=== PATIENT | female | born 1960 | race Caucasian/White ===

== ENCOUNTER → 2016-12-23 | Outpatient (CLI) | payer OTHER ==
--- NOTE | 2016-12-23 09:57 | DX ---
Right hand, 3 views, 916 a.m. Right Hand, 3 Views, at 9:16 a.m. Clinical History: 56-year-old female with metacarpal pain after twisting her right hand in her dog's leash yesterday. ICD 10 Diagnostic Code: M79.641. Comparison Study: None. Findings: There is no acute fracture or dislocation. There is a punctate well-corticated ossific dens ity distal to the ulnar styloid. The radiocarpal and intercarpal alignments are maintained, and the m etacarpals are intact. Impression: There is no acute osseous abnormality identified.
== END ==
LOC: BMCIMAGING 09:19
PROVIDERS: ATTEND Family Medicine
DX: M79.641 Pain in right hand (principal)

== ENCOUNTER → 2017-02-01 | Outpatient (CLI) | payer OTHER | LOC: BMCIMAGING 14:40 | DX: Z12.31 Encounter for screening mammogram for malignant neoplasm of breast (principal) | CPT/HCPCS: G0202 ==

== ENCOUNTER → 2017-03-29 | Outpatient (CLI) | payer OTHER | LOC: BMCIMAGING 11:40 | PROVIDERS: ATTEND Podiatrist Foot & Ankle Surgery | DX: M79.672 Pain in left foot (principal); M77.32 Calcaneal spur, left foot ==

== ENCOUNTER → 2017-05-24 | Outpatient (CLI) | payer OTHER | LOC: BMCIMAGING 08:34 | PROVIDERS: ATTEND Family Medicine | DX: M25.522 Pain in left elbow (principal) ==

== ENCOUNTER → 2017-07-25 | Outpatient (CLI) | payer OTHER | LOC: FIMAGING 16:41 | PROVIDERS: ATTEND Internal Medicine | DX: R22.42 Localized swelling, mass and lump, left lower limb (principal) ==

== ENCOUNTER → 2017-08-10 | Outpatient (CLI) | payer OTHER ==
[~2017-08-10] MED LIST: IOPAMIDOL (ISOVUE 370) 100 ML BTL IV ONE; LIDOCAINE 1% 300 MG/30 ML SDV ONE
== END ==
LOC: FIMAGING 10:07
PROVIDERS: ATTEND Physician Assistant
PROC: 3E0U3KZ Introduction of Other Diagnostic Substance into Joints, Percutaneous Approach (ICD-10-PCS; principal; 2017-08-10)
DX: Z47.1 Aftercare following joint replacement surgery (principal); Z96.622 Presence of left artificial elbow joint
CPT/HCPCS: Q9967

== ENCOUNTER 2017-09-02 15:52 | Emergency (ER) | payer OTHER ==
[2017-09-02 15:58] VITALS: TEMP 98.2
[2017-09-02] MEDS ORDERED: NS 1,000 ML IV ONE (16:21)
[2017-09-02] MEDS ORDERED: HYDROmorphONE/DILAUDID 1 MG/ML INJ IVP ONE (16:22)
--- NOTE | 2017-09-02 16:25 | EDPHY ---
H & P Stated Complaint: chills, red/painfull surgical wound Time Seen by Provider: 09/02/17 16:12 HPI/ROS: CHIEF COMPLAINT: Wound infection HISTORY OF PRESENT ILLNESS: The patient is a 57-year-old morbidly obese female who comes to the emergency department complaining of increased low back pain as well as chills and concerned that her wound is warm. She is 2.5 weeks out from a T10 through S1 fusion by Dr. Klein at [facility]. She states that she has been nauseous for the last day and has also not been taking her Dilaudid. She states that it is more painful to lay on or move. The wound itself is well appearing not erythematous and not draining. She called her home health nurse who recommended she come here for lab work. REVIEW OF SYSTEMS: Constitutional: denies: chills, fever, recent illness, recent injury EENTM: denies: blurred vision, double vision, nose congestion Respiratory: denies: cough, shortness of breath Cardiac: denies: chest pain, irregular heart rate, lightheadedness, palpitations Gastrointestinal/Abdominal: denies: abdominal pain, diarrhea, nausea, vomiting, blood streaked stools Genitourinary: denies: dysuria, frequency, hematuria, pain Musculoskeletal: See HPI Skin: See HPI Neurological: denies: headache, numbness, paresthesia, tingling, dizziness, weakness Hematologic/Lymphatic: denies: blood clots, easy bleeding, easy bruising Immunologic/allergic: denies: HIV/AIDS, transplant EXAM: GENERAL: Well-appearing, well-nourished and in no acute distress. HEAD: Atraumatic, normocephalic. EYES: Pupils equal round and reactive to light, extraocular movements intact, sclera anicteric, conjunctiva are normal. ENT: TMs normal, nares patent, oropharynx clear without exudates. Moist mucous membranes. NECK: Normal range of motion, supple without lymphadenopathy or JVD. LUNGS: Breath sounds clear to auscultation bilaterally and equal. No wheezes rales or rhonchi. HEART: Regular rate and rhythm without murmurs, rubs or gallops. ABDOMEN: Soft, nontender, normoactive bowel sounds. No guarding, no rebound. No masses appreciated. BACK: No CVA tenderness, no spinal tenderness, step-offs or deformities EXTREMITIES: Normal range of motion, no pitting or edema. No clubbing or cyanosis. NEUROLOGICAL: Cranial nerves II through XII grossly intact. Normal speech, normal gait. 5/5 strength, normal movement in all extremities, normal sensation PSYCH: Normal mood, normal affect. SKIN: Large back incision, clean dry and intact, no drainage, no erythema. No warmth. Half of the janie still in place. Source: Patient Exam Limitations: No limitations - Personal History Current Tetanus Diphtheria and Acellular Pertussis (TDAP): Yes Tetanus Vaccine Date: 2010 - Medical/Surgical History Hx Asthma: No Hx Chronic Respiratory Disease: No Hx Diabetes: No Hx Cardiac Disease: No Hx Renal Disease: No Hx Cirrhosis: No Hx Alcoholism: No Hx HIV/AIDS: No Hx Splenectomy or Spleen Trauma: No Other PMH: TKA x 2, Elbow rx, Back Surg, s1/t10 fusion - Family History Significant Family History: No pertinent family hx - Social History Smoking Status: Never smoked Alcohol Use: Sober Drug Use: None Constitutional: Initial Vital Signs Temperature (C) 36.8 C 09/02/17 15:55 Heart Rate 85 09/02/17 15:55 Respiratory Rate 18 09/02/17 15:55 Blood Pressure 114/77 09/02/17 15:55 O2 Sat (%) 97 09/02/17 15:55 O2 Delivery Mode Room Air Allergies/Adverse Reactions: clindamycin Allergy (Intermediate, Verified 09/02/17 15:59) Hives codeine [Codeine] Allergy (Intermediate, Verified 09/02/17 15:59) Vomiting gluten Allergy (Intermediate, Verified 09/02/17 15:59) Abdominal Cramping Home Medications: Medication Instructions Recorded FLUoxetine [Prozac 20 MG (RX)] 11/22/12 DILAUDID 10/31/16 Herbals/Supplements -Info Only 10/31/16 IBUPROFEN 10/31/16 LYRICA 10/31/16 Levothyroxine 10/31/16 Robaxin 500 mg (*) 10/31/16 SUMAtriptan 10/31/16 TRAMADOL HCL 10/31/16 Ondansetron Odt [Zofran Odt 4 mg 4 mg PO Q4 PRN #20 tab 09/02/17 (RX)] Medical Decision Making ED Course/Re-evaluation: 5:30 p.m. the patient is feeling much better. Her lab work is reassuring. White blood cell count and lactate are normal. She is afebrile. She states that her pain is completely better after receiving Dilaudid and Zofran. She did not have any anti nausea medication at home and therefore was not able to take her pain medication recently. She would like the Zofran to take at home. We discussed indications for returning as well as importance of follow-up. She understands and agrees with this plan. Differential Diagnosis: Partial list of the Differential diagnosis considered include but were not limited to; low back pain, surgical infection and although unlikely based on the history and physical exam, I also considered foreign body, fracture. - Data Points Laboratory Results: Laboratory Results 09/02/17 16:37 09/02/17 16:37 09/02/17 09/02/17 09/02/17 16:53 16:37 16:37 WBC 4.95 10^3/uL 10^3/uL (3.80-9.50) RBC 3.64 10^6/uL L 10^6/uL (4.18-5.33) Hgb 11.7 g/dL L g/dL (12.6-16.3) Hct 35.1 % L % (38.0-47.0) MCV 96.4 fL fL (81.5-99.8) MCH 32.1 pg pg (27.9-34.1) MCHC 33.3 g/dL g/dL (32.4-36.7) RDW 13.6 % % (11.5-15.2) Plt Count 318 10^3/uL 10^3/uL (150-400) MPV 10.8 fL fL (8.7-11.7) Neut % (Auto) 76.0 % H % (39.3-74.2) Lymph % (Auto) 14.5 % L % (15.0-45.0) Mcminn % (Auto) 8.3 % % (4.5-13.0) Eos % (Auto) 0.6 % % (0.6-7.6) Baso % (Auto) 0.4 % % (0.3-1.7) Nucleat RBC Rel Count 0.0 % % (0.0-0.2) Absolute Neuts (auto) 3.76 10^3/uL 10^3/uL (1.70-6.50) Absolute Lymphs (auto) 0.72 10^3/uL L 10^3/uL (1.00-3.00) Absolute Monos (auto) 0.41 10^3/uL 10^3/uL (0.30-0.80) Absolute Eos (auto) 0.03 10^3/uL 10^3/uL (0.03-0.40) Absolute Basos (auto) 0.02 10^3/uL 10^3/uL (0.02-0.10) Absolute Nucleated RBC 0.00 10^3/uL 10^3/uL (0-0.01) Immature Gran % 0.2 % % (0.0-1.1) Immature Gran # 0.01 10^3/uL 10^3/uL (0.00-0.10) ABG Lactic Acid 1.2 mmol/L mmol/L (0.5-1.6) Sodium 140 mEq/L mEq/L (134-144) Potassium 3.4 mEq/L L mEq/L (3.5-5.2) Chloride 109 mEq/L mEq/L (97-110) Carbon Dioxide 21 mEq/l L mEq/l (22-31) Anion Gap 10 mEq/L mEq/L (8-16) BUN 3 mg/dL L mg/dL (7-23) Creatinine 0.8 mg/dL mg/dL (0.6-1.0) Estimated GFR > 60 Glucose 102 mg/dL H mg/dL (70-100) Calcium 9.7 mg/dL mg/dL (8.5-10.4) Medications Given: Discontinued Medications Hydromorphone HCl (Dilaudid) 1 mg IVP EDNOW ONE Stop: 09/02/17 16:23 Last Admin: 09/02/17 16:34 Dose: 1 mg Sodium Chloride (Ns) 1,000 mls @ 0 mls/hr IV ONCE ONE; Wide Open PRN Reason: Protocol Stop: 09/02/17 16:22 Last Admin: 09/02/17 16:33 Dose: 1,000 mls Ondansetron HCl (Zofran) 4 mg IVP EDNOW ONE Stop: 10/14/17 16:23 Last Admin: 09/02/17 16:34 Dose: 4 mg Ondansetron HCl (Zofran Odt 4 Mg Prepack#2) 1 btl TAKEJOSÉ MANUEL EDNOW ONE Stop: 09/02/17 17:31 Last Admin: 09/02/17 17:40 Dose: 1 btl Departure - Departure Disposition: Home, Routine, Self-Care Clinical Impression: Low back pain Qualifiers: Chronicity: chronic Back pain laterality: midline Sciatica presence: without sciatica Qualified Code(s): M54.5 - Low back pain; G89.29 - Other chronic pain; G89.29 - Other chronic pain Condition: Fair Instructions: Ondansetron (By mouth), Back Pain (ED) Referrals: Mabel Wells MD [Primary Care Provider] - As per Instructions Prescriptions: Ondansetron Odt [Zofran Odt 4 mg (RX)] 4 mg PO Q4 PRN #20 tab PRN Reason: Nausea & Vomiting
[2017-09-02] MEDS: ONDANSETRON 4 MG/2 ML VIAL IVP ONE (16:34)
[2017-09-02 16:49] LABS: % IMMATURE GRANULYOCYTES 0.2 % (0.0-1.1); ABSOLUTE IMMATURE GRANULOCYTES 0.01 10^3/uL (0.00-0.10); ADD DIFF? NO; ADD MORPH? NO; ADD SCAN? NO; ATYPICAL LYMPHOCYTE FLAG 10 (0-99); FRAGMENT RBC FLAG 0 (0-99); HEMATOCRIT 35.1 % (38.0-47.0); HEMOGLOBIN 11.7 g/dL (12.6-16.3); LEFT SHIFT FLG 0 (0-99); LIPEMIA HEMOLYSIS FLAG 80 (0-99); MEAN CELL HEMOGLOBIN 32.1 pg (27.9-34.1); MEAN CELL HEMOGLOBIN CONCENTR. 33.3 g/dL (32.4-36.7); MEAN CELL VOLUME 96.4 fL (81.5-99.8); MEAN PLATELET VOLUME 10.8 fL (8.7-11.7); PLATELET CLUMPS FLAG 0 (0-99); PLATELET COUNT 318 10^3/uL (150-400); RED BLOOD CELL COUNT 3.64 10^6/uL (4.18-5.33); RED CELL DISTRIBUTION WIDTH 13.6 % (11.5-15.2)
[2017-09-02 17:03] LABS: ANION GAP 10 mEq/L (8-16); CALCIUM 9.7 mg/dL (8.5-10.4); CARBON DIOXIDE 21 mEq/l (22-31); CHLORIDE 109 mEq/L (97-110); CREATININE 0.8 mg/dL (0.6-1.0); GLOMERULAR FILTRATION RATE > 60; GLUCOSE 102 mg/dL (70-100); POTASSIUM 3.4 mEq/L (3.5-5.2); SODIUM 140 mEq/L (134-144)
[2017-09-02] MEDS ORDERED: ONDANSETRON 4MG PREPACK#2 BTL TAKEHOME ONE (17:30)
[2017-09-02 17:35] VITALS: BP 173/88; PULSE 70; RESP 16; O2SAT 98
== END 2017-09-02 17:49 | disposition home or self-care (01) ==
DX: M54.5 Low back pain (principal); G89.29 Other chronic pain; E86.9 Volume depletion, unspecified
CPT/HCPCS: 96374; J1170; J2405

== ENCOUNTER 2017-10-30 12:58 | Emergency (ER) | payer OTHER ==
[2017-10-30 13:05] VITALS: O2SAT 95
--- NOTE | 2017-10-30 13:21 | EDPHY ---
H & P Stated Complaint: L calf pain x 1 day; recent surg L elbow;sent for eval poss blood clot Time Seen by Provider: 10/30/17 13:00 HPI/ROS: CHIEF COMPLAINT: Left calf pain HISTORY OF PRESENT ILLNESS: The patient has a history of obesity, prior DVTs and has been off of Coumadin for the past 2 weeks. She has a history of recent fall, back surgery and left elbow surgery. She presents to the ED today with complaints of atraumatic left calf pain. The patient denies any chest pain or shortness of breath. She denies fever, cough or congestion. The patient denies acute numbness or weakness. REVIEW OF SYSTEMS: A comprehensive 10 point review of systems is otherwise negative aside from elements mentioned in the history of present illness. Source: Patient - Personal History Current Tetanus Diphtheria and Acellular Pertussis (TDAP): Yes Tetanus Vaccine Date: 2010 - Medical/Surgical History Hx Asthma: No Hx Chronic Respiratory Disease: No Hx Diabetes: No Hx Cardiac Disease: No Hx Renal Disease: No Hx Cirrhosis: No Hx Alcoholism: No Hx HIV/AIDS: No Hx Splenectomy or Spleen Trauma: No Other PMH: TKA x 2, Elbow rx, Back Surg, s1/t10 fusion - Social History Smoking Status: Never smoked - Physical Exam Exam: General Appearance: Alert, no acute distress Eyes: Pupils equal and round no pallor or injection ENT, Mouth: Mucous membranes moist Respiratory: There are no retractions, lungs are clear to auscultation Cardiovascular: Regular rate and rhythm Gastrointestinal: Abdomen is soft and nontender, no masses, bowel sounds normal Neurological: A&O, normal motor function, normal sensory exam, normal cranial nerves Skin: Warm and dry, no rashes Musculoskeletal: Patient is wearing a thoracic brace Extremities: Tenderness to palpation left calf, no asymmetry appreciated Constitutional: Initial Vital Signs Temperature (C) 36.9 C 10/30/17 13:02 Heart Rate 94 10/30/17 13:02 Respiratory Rate 18 10/30/17 13:02 Blood Pressure 155/93 H 10/30/17 13:02 O2 Sat (%) 95 10/30/17 13:02 O2 Delivery Mode Room Air Allergies/Adverse Reactions: clindamycin Allergy (Intermediate, Verified 10/30/17 13:00) Hives codeine [Codeine] Allergy (Intermediate, Verified 10/30/17 13:00) Vomiting gluten Allergy (Intermediate, Verified 10/30/17 13:00) Abdominal Cramping Home Medications: Medication Instructions Recorded FLUoxetine [Prozac 20 MG (RX)] 11/22/12 DILAUDID 10/31/16 Herbals/Supplements -Info Only 10/31/16 LYRICA 10/31/16 Levothyroxine 10/31/16 SUMAtriptan 10/31/16 TRAMADOL HCL 10/31/16 Ondansetron Odt [Zofran Odt 4 mg 4 mg PO Q4 PRN #20 tab 09/02/17 (RX)] Enoxaparin [Lovenox 120 MG (*)] 120 mg SQ BID #13 syr 10/30/17 tiZANidine HCL [Zanaflex 2MG (*)] 2 mg PO 10/30/17 Medical Decision Making - Diagnostics Imaging Results: Imaging Impressions Extremity Venous Study 10/30/17 13:18 Impression: There has been interval development of deep venous thrombosis involving the left femoral vein, extending into the popliteal vein and into the deep veins of the calf. Findings were discussed with Ketan Saba MD at 14:11, on 10/30/2017. ED Course/Re-evaluation: Patient presents to the ED for evaluation of acute left calf pain. She has a history of multiple DVTs in the past. She is noted to have a DVT on her examination today. The patient has no clinical evidence of a PE. I discussed the case with her primary care provider Dr. Wells. The patient will be restarted on Lovenox 120 mg subcu twice daily for bridging therapy. The patient 's primary care provider will call in her prescription for Coumadin and follow up her anticoagulation. The patient is advised to return to the ED for increasing pain, difficulty breathing or other concerns. Differential Diagnosis: Differential diagnosis considered includes DVT, Pelayo cyst, hematoma, myofascial strain Departure - Departure Disposition: Home, Routine, Self-Care Clinical Impression: Left leg DVT Condition: Good Instructions: Deep Venous Thrombosis (ED) Additional Instructions: 1. Please resume Lovenox. 2. Dr. Wells will call in your Coumadin and follow up with you regarding your INR checks. 3. Please return to the ED for chest pain, difficulty breathing or other concerns. Referrals: Mabel Wells MD [Primary Care Provider] - As per Instructions Prescriptions: Enoxaparin [Lovenox 120 MG (*)] 120 mg SQ BID #13 syr
[2017-10-30] MEDS ORDERED: ENOXAPARIN 120 MG/0.8 ML SYR SC ONE (15:11)
[2017-10-30 15:34] VITALS: BP 154/91; PULSE 81; RESP 16; TEMP 98.2
== END 2017-10-30 15:56 | disposition home or self-care (01) ==
DX: I82.432 Acute embolism and thrombosis of left popliteal vein (principal)
CPT/HCPCS: J1650

== ENCOUNTER 2017-12-11 10:29 | Emergency (ER) | payer OTHER ==
[2017-12-11 10:43] VITALS: RESP 16
--- NOTE | 2017-12-11 13:11 | EDPHY ---
H & P Time Seen by Provider: 12/11/17 13:10 HPI/ROS: Chief complaint. Fall HPI. 57-year-old female was knocked down by her dog 11 days ago. She struck her left knee as well as hurt her back. She complains of continued pain and swelling to the left knee and hurts to walk. She had back surgery in October for fractured vertebra. She does not have back pain but is concerned about the hardware in her back. Did not strike her head or have neck pain. No chest discomfort or trouble breathing. No abdominal pain. She is taking Coumadin ROS Constitutional. no fever/chills, no weakness Eyes. no problems with vision ENT. no sore throat, no nasal drainage Cardiovascular. no chest pain Respiratory. no shortness of breath, no cough Abdominal. no abdominal pain, no nausea/vomiting, no diarrhea . no problems urinating MS. Left leg swelling and bruising Skin. no rash Lymph. no swollen glands Neuro. no headache, no dizziness, no difficulty walking or with speech Past Medical/Surgical History: Back surgery Social History: Single, nonsmoker, no alcohol Smoking Status: Never smoked Physical Exam: General Appearance: Alert well-developed female mild distress vital signs are stable Eyes: Pupils equal and round no pallor or injection. ENT, Mouth: Mucous membranes are moist. Respiratory: There are no retractions, lungs are clear to auscultation. Cardiovascular: Regular rate and rhythm. Gastrointestinal: Abdomen is soft and nontender, no masses, bowel sounds normal. Neurological: Awake and alert, sensory and motor exams grossly normal. Skin: Warm and dry, no rashes. Musculoskeletal: Neck is supple nontender. Extensive scarring from surgery down her back but no obvious swelling or discrete tenderness Extremities symmetrical, full range of motion. Bruising to the lateral aspect of the upper tibia area. Psychiatric: Patient is oriented X 3, there is no agitation. Constitutional: Initial Vital Signs Temperature (C) 36.7 C 12/11/17 10:35 Heart Rate 104 H 12/11/17 10:35 Respiratory Rate 16 12/11/17 10:35 Blood Pressure 133/98 H 12/11/17 10:35 O2 Sat (%) 9 L 12/11/17 10:35 Allergies/Adverse Reactions: clindamycin Allergy (Intermediate, Verified 12/11/17 10:39) Hives codeine [Codeine] Allergy (Intermediate, Verified 12/11/17 10:39) Vomiting gluten Allergy (Intermediate, Verified 12/11/17 10:39) Abdominal Cramping Home Medications: Medication Instructions Recorded FLUoxetine [Prozac 20 MG (RX)] 11/22/12 DILAUDID 10/31/16 LYRICA 10/31/16 Levothyroxine 10/31/16 SUMAtriptan 10/31/16 TRAMADOL HCL 10/31/16 Enoxaparin [Lovenox 120 MG (*)] 120 mg SQ BID #13 syr 10/30/17 tiZANidine HCL [Zanaflex 2MG (*)] 2 mg PO 10/30/17 Doxepin HCl [Sinequan 50 MG (*)] 50 mg PO 12/11/17 Warfarin Sodium [Coumadin 2.5MG 2.5 mg PO 12/11/17 (*)] Medical Decision Making - Diagnostics Imaging Results: Imaging Impressions Lumbar Spine X-Ray 12/11/17 13:35 Impression: 1. No acute findings in the lumbar spine. 2. Grossly normal appearance of extensive thoracolumbar fusion hardware. Thoracic Spine X-Ray 12/11/17 13:35 Impression: 1. Extensive thoracolumbar fusion hardware, which appears intact, without evidence of loosening. 2. Age-indeterminate mild compression fracture of T4, new since 2013. 3. Additional findings, as above. Tibia/Fibula X-Ray 12/11/17 13:35 Impression: No acute osseous findings. Tibia/fibula x-ray show evidence of fracture I reviewed and discussed the lumbar spine and thoracic spine with Dr. Lane. We find no evidence of hardware damage or new acute fracture ED Course/Re-evaluation: On re-evaluation patient is stable. She and I discussed imaging study results, treatment plan including criteria for return and importance of follow-up further evaluation. She expresses understanding and agreement We did check the patient's INR and find to be 3.37. The patient and I discussed adjustment of her anticoagulation Differential Diagnosis: Injury from fall 11 days ago. No evidence for hardware in her back malfunction. No evidence for tibia or fibula fracture. - Data Points Laboratory Results: 12/11/17 14:25 PT 33.9 SEC H SEC (12.0-15.0) INR 3.37 H (0.83-1.16) APTT 110.7 SEC H SEC (23.0-38.0) Departure - Departure Disposition: Home, Routine, Self-Care Clinical Impression: Multiple contusions Condition: Good Instructions: Contusion in Adults (ED) Additional Instructions: Easy activity. Consider take 7.5 mg of warfarin tomorrow night rather than year 10 mg as your INR is 3.37 today. Return for worsening symptoms. Follow up with both Dr. Wells and your back surgeon in [place] for continuing symptoms Referrals: Mabel Wells MD [Primary Care Provider] - As per Instructions
[2017-12-11 14:42] LABS: INR 3.37 (0.83-1.16); PROTIME(PATIENT) 33.9 SEC (12.0-15.0)
[2017-12-11 15:48] VITALS: BP 131/89; PULSE 97; TEMP 98.6; O2SAT 96
== END 2017-12-11 16:16 | disposition home or self-care (01) ==
DX: T14.8XXA Other injury of unspecified body region, initial encounter (principal); Z79.01 Long term (current) use of anticoagulants; W22.8XXA Striking against or struck by other objects, initial encounter

== ENCOUNTER → 2018-01-18 | Outpatient (CLI) | payer OTHER | LOC: FCPNEURO 20:00 | PROVIDERS: ATTEND Student in an Organized Health Care Education/Training Program | DX: G47.33 Obstructive sleep apnea (adult) (pediatric) (principal) ==

== ENCOUNTER → 2018-03-10 | Outpatient (CLI) | payer OTHER | LOC: FIMAGING 13:47 | PROVIDERS: ATTEND Internal Medicine | DX: Z12.31 Encounter for screening mammogram for malignant neoplasm of breast (principal) ==

== ENCOUNTER → 2018-05-29 | Outpatient (CLI) | payer OTHER | LOC: BMCIMAGING 09:24 | PROVIDERS: ATTEND Family Medicine | DX: M89.9 Disorder of bone, unspecified (principal); Z98.1 Arthrodesis status ==

== ENCOUNTER 2018-07-13 13:55 | Emergency (ER) | payer OTHER ==
--- NOTE | 2018-07-13 14:16 | EDPHY ---
H & P Time Seen by Provider: 07/13/18 13:57 HPI/ROS: CHIEF COMPLAINT: Mechanical fall, neck pain, elbow pain HISTORY OF PRESENT ILLNESS: Patient is a 50-year-old female with fibromyalgia on Xarelto presents emergency department with multiple complaints after mechanical fall. The patient was chasing a toddler when she tripped. She states she struck her head. She did not lose consciousness but she has a mild headache. She complains of midline neck discomfort. No weakness or numbness. No visual change. Patient also complains of left elbow pain. This is moderate. She has had a previous left elbow replacement. Patient denies any chest pain or shortness of breath. No abdominal pain. No hip or knee pain. REVIEW OF SYSTEMS: My complete review of systems is negative except as mentioned in the HPI. Past Medical/Surgical History: Includes fibromyalgia, DVT, thyroid disease Past surgical history: Multiple orthopedic surgeries including left elbow replacement Social history: Patient does not smoke Smoking Status: Never smoked Physical Exam: Vitals noted GENERAL: Well-appearing, in no acute distress, alert. C-collar in place HEAD: No evidence of trauma. EYES: PERRLA, EOMI, normal to inspection. ENT: Airway intact, no dental or oral injury, no malocclusion, no hemotympanum , normal external examination. NECK: The trachea is midline. There is no crepitus. Patient has mild midline cervical spine tenderness to palpation. No deformity or step-off. RESPIRATORY: Clear to auscultation bilaterally, no rales, rhonchi or wheezing. There is no crepitus or palpable rib fractures. CVS: Regular rate and rhythm, no rubs, murmurs, or gallops. ABDOMEN: Soft, nontender, nondistended, normal bowel sounds, no bruising or abrasions. Pelvis: Stable. No tenderness palpation. Hips full range of motion. BACK: Normal to inspection, no spinal tenderness, no spinal step off, no notable bruising or abrasions. SKIN: Normal color, warm, dry. No pallor or diaphoresis. EXTREMITIES: Right upper extremity: No visible signs of trauma. No tenderness palpation. Neurovascular intact distally. Left upper extremity: No visible signs of trauma. Mild left elbow tenderness palpation. No swelling. Neurovascular intact distally. Right lower extremity: Knee scar. Atraumatic. No visible signs of trauma. No tenderness palpation. Neurovascular intact distally. Left lower extremity: Knee scar. Atraumatic. No visible signs of trauma. No tenderness palpation. Neurovascular intact distally. NEURO/PSYCH: Alert and oriented x 3, GCS 15, normal mood and affect, normal motor sensory exam. Constitutional: Initial Vital Signs Temperature (C) 36.8 C 07/13/18 14:01 Heart Rate 94 07/13/18 14:01 Respiratory Rate 16 07/13/18 14:01 Blood Pressure 132/72 H 07/13/18 14:01 O2 Sat (%) 96 07/13/18 14:01 O2 Delivery Mode Room Air Allergies/Adverse Reactions: clindamycin Allergy (Intermediate, Verified 12/11/17 10:39) Hives codeine [Codeine] Allergy (Intermediate, Verified 12/11/17 10:39) Vomiting gluten Allergy (Intermediate, Verified 12/11/17 10:39) Abdominal Cramping Home Medications: Medication Instructions Recorded FLUoxetine [Prozac 20 MG (RX)] 11/22/12 LYRICA 10/31/16 Levothyroxine 10/31/16 SUMAtriptan 10/31/16 TRAMADOL HCL 10/31/16 Medical Decision Making - Diagnostics Imaging Results: Imaging Impressions Cervical Spine CT 07/13/18 14:19 Impression: 1. No acute fracture or soft tissue swelling. 2. If the patient has persistent pain or neurologic deficits, consider cervical spine MRI. Findings discussed with Emergency Department physician, Lisa Garcia on , 15:28. Head CT 07/13/18 14:19 Impression: No acute fracture or evidence of acute intracranial injury. Findings discussed with Emergency Department physician, Lisa Garcia on , 15:28. Procedures: \ ED Course/Re-evaluation: In the emergency department I met EMS on arrival. I took report from the code number stamper. Patient's C-collar was left in place and C-spine precautions were maintained. Head CT and C-spine CT were ordered for the patient's traumatic presentation. Left elbow x-ray was ordered. Head CT scan, C-spine CT: Please refer the dictated report. No acute disease noted Left elbow x-ray: Please refer the dictated report. No acute disease. I discussed the result with the patient I answered all her questions. C-collar was removed. Patient was neurovascular intact distally. No focal neurologic deficits. Patient was given warnings prior to leaving. She will return with worsening symptoms. She was given ibuprofen 600 mg orally. Differential Diagnosis: My differential includes but is not limited to subarachnoid hemorrhage, subdural hematoma, epidural hematoma, head contusion, cervical strain, cervical sprain, disc herniation, fracture, dislocation, elbow fracture, elbow dislocation, elbow contusion, dysrhythmia Departure - Departure Disposition: Home, Routine, Self-Care Clinical Impression: Head injury Qualifiers: Encounter type: initial encounter Qualified Code(s): S09.90XA - Unspecified injury of head, initial encounter Cervical strain, acute Qualifiers: Encounter type: initial encounter Qualified Code(s): S16.1XXA - Strain of muscle, fascia and tendon at neck level, initial encounter Elbow contusion Qualifiers: Encounter type: initial encounter Laterality: left Qualified Code(s): S50.02XA - Contusion of left elbow, initial encounter Condition: Good Instructions: Cervical Strain (ED), Head Injury (ED), Contusion in Adults (ED) Additional Instructions: Return with increasing pain, weakness, numbness, headache or any other concerns. Your CT imaging was unremarkable. The x-ray of you're arm was unremarkable. Referrals: Mabel Wells MD [Primary Care Provider] - 2-3 days, call for appt.
[2018-07-13] MEDS ORDERED: IBUPROFEN 600 MG TAB PO ONE (16:16)
[2018-07-13 16:29] VITALS: BP 133/81
== END 2018-07-13 16:30 | disposition home or self-care (01) ==
LOC: EDUNIT#
DX: S09.90XA Unspecified injury of head, initial encounter (principal); S16.1XXA Strain of muscle, fascia and tendon at neck level, initial encounter; S50.02XA Contusion of left elbow, initial encounter; M79.7 Fibromyalgia; Z86.718 Personal history of other venous thrombosis and embolism; W01.198A Fall on same level from slipping, tripping and stumbling with subsequent striking against other object, initial encounter

== ENCOUNTER → 2019-03-20 | Outpatient (CLI) | payer OTHER | LOC: BMCIMAGING 09:46 | PROVIDERS: ATTEND Podiatrist Foot & Ankle Surgery | DX: M19.071 Primary osteoarthritis, right ankle and foot (principal) ==

== ENCOUNTER → 2019-03-27 | Outpatient (CLI) | payer OTHER | LOC: BMCIMAGING 09:10 | PROVIDERS: ATTEND Physician Assistant | DX: M24.812 Other specific joint derangements of left shoulder, not elsewhere classified (principal) ==

== ENCOUNTER → 2019-03-31 | Outpatient (CLI) | payer OTHER | LOC: FIMAGING 08:46 | PROVIDERS: ATTEND Physician Assistant | DX: S43.431A Superior glenoid labrum lesion of right shoulder, initial encounter (principal); M75.112 Incomplete rotator cuff tear or rupture of left shoulder, not specified as traumatic; M75.82 Other shoulder lesions, left shoulder; M75.22 Bicipital tendinitis, left shoulder; M19.012 Primary osteoarthritis, left shoulder ==

== ENCOUNTER → 2019-04-03 | Outpatient (CLI) | payer OTHER | LOC: FIMAGING 18:39 | PROVIDERS: ATTEND Podiatrist Foot & Ankle Surgery | DX: M79.671 Pain in right foot (principal) ==

== ENCOUNTER → 2019-04-16 | Outpatient (CLI) | payer OTHER | LOC: FIMAGING 09:01 ==